=== PATIENT | female | born 1955 | race Caucasian/White ===

== ENCOUNTER 2024-08-09 18:05 | Emergency (ER) | payer OTHER ==
[~2024-08-09] VITALS: Ht 175.3 cm; Wt 86.2 kg
[~2024-08-09 18:05] MED LIST: CEPH500; CIPR500; HYDACE5; HYDR25SUP PR; IBUP800 PO; NAPR220 PO; OXYACE5T PO; RXIBUP800 PO; RXOXYACE PO; TIOT18 INH
[2024-08-09] MEDS ORDERED: Ketorolac Tromethamine 15mg Vial IV ONE (19:25)
[2024-08-09] MEDS ORDERED: Prochlorperazine Edisylate 10 mg Vial IV ONE (19:25)
[2024-08-09] MEDS ORDERED: NS 1,000 ML IV SCH (19:25)
[2024-08-09 19:48] LABS: Influenza B, PCR NEGATIVE (NEGATIVE); Resp Syncytial Virus, PCR NEGATIVE (NEGATIVE); SARS-Cov-2 (COVID-19) PCR, MMC NEGATIVE (NEGATIVE)
[2024-08-09 19:48] LABS: BASOPHILS ABSOLUTE AUTO 0.03 K/mm3 (0.00-0.23); BASOPHILS PERCENT AUTO 0 % (0-2); EOSINOPHILS PERCENT AUTO 0 % (0-6); Hematocrit 41.7 % (33.0-51.0); Hemoglobin 14.1 g/dL (11.5-16.0); IMMATURE GRAN ABSOLUTE AUTO 0.03 K/mm3 (0.00-0.10); IMMATURE GRAN PERCENT AUTO 0 % (0-1); LYMPHOCYTES ABSOLUTE AUTO 0.95 K/mm3 (0.84-5.20); LYMPHOCYTES PERCENT AUTO 12 % (21-46); MONOCYTES ABSOLUTE AUTO 1.03 K/mm3 (0.16-1.47); MONOCYTES PERCENT AUTO 13 % (4-13); Mean Corpuscular HGB 27.9 pg (26.0-34.0); Mean Corpuscular HGB Conc 33.8 g/dL (31.5-36.5); Mean Corpuscular Volume 82 fL (80-100); Mean Platelet Volume 9.3 fL (9.1-12.4); NEUTROPHILS ABSOLUTE AUTO 5.84 K/mm3 (1.96-9.15); NEUTROPHILS PERCENT AUTO 74 % (41-73); Platelet Count 154 K/mm3 (150-400); RDW Coefficient Variation 13.7 % (11.7-14.2); RDW Standard Deviation 40.9 fL (35.1-46.3); Red Blood Cell Count 5.06 M/mm3 (3.80-5.20); White Blood Cell Count 7.88 K/mm3 (4.00-11.30)
[2024-08-09 20:15] LABS: Albumin/Globulin Ratio 0.8 (0.8-1.8); Bilirubin, Total 0.4 mg/dL (0.1-1.0); Bun/Creatinine Ratio 23.5 (12.0-20.0); Calcium, Blood 8.9 mg/dL (8.5-10.1); Creatinine, Blood 0.98 mg/dL (0.40-1.00); Potassium, Blood 3.6 mmol/L (3.5-5.5)
[2024-08-09 20:49] LABS: Influenza A, PCR POSITIVE (NEGATIVE)
[2024-08-09 21:30] VITALS: BP 120/61
[2024-08-09] MEDS ORDERED: Azithromycin 250 MG Tab PO ONE (21:35)
[2024-08-09] MEDS ORDERED: Dexamethasone Sod Phos 10 MG/ML 1ML VIAL IV ONE (21:35)
[2024-08-09] MEDS ORDERED: AZIT250 PO (21:38)
== END 2024-08-09 21:55 | disposition home or self-care (01) ==
LOC: ER 18:05
PROVIDERS: Student in an Organized Health Care Education/Training Program
DX: J10.1 Influenza due to other identified influenza virus with other respiratory manifestations (principal); J44.1 Chronic obstructive pulmonary disease with (acute) exacerbation; F17.200 Nicotine dependence, unspecified, uncomplicated; Z88.0 Allergy status to penicillin
CPT/HCPCS: 0241U; 70450; 71046; 80053; 84484; 85025; 93005; 93010; 96374; 96375; 99285-25; A9270; J0780; J1100; J1885; J7030

== ENCOUNTER 2024-10-24 12:45 | Day surgery (SDC) | payer OTHER ==
[~2024-10-24] VITALS: Ht 165.1 cm; Wt 60.6 kg
[~2024-10-24 12:45] MED LIST changes: +AZIT250 PO; +Atropine Sulfate 0.1 MG/ML 10ML SYR ONE; +Glycopyrrolate 0.2 MG/ML 1MLVIAL ONE; +Lactated Ringer's 1,000 ML IV ONE; +Ondansetron HCl 2 MG / ML 2ML Vial ONE; +ePHEDrine Sulfate 50 MG/ML 1ML Injection ONE
[2024-10-24] MEDS ORDERED: TRELEGY ELLIPT1 EACH (12:52)
[2024-10-24] MEDS ORDERED: FLUTICASONE-SA1 EAC1 (12:53)
[2024-10-24] MEDS ORDERED: ASPI81CH (12:53)
[2024-10-24] MEDS ORDERED: IBUP100S (12:53)
[2024-10-24] MEDS ORDERED: Ventolin5 MG/1 ML (12:53)
[2024-10-24] MEDS ORDERED: NICOTINE LOZENGE2 MG (12:54)
[2024-10-24] MEDS ORDERED: TRAM50 PO (12:54)
[2024-10-24] MEDS ORDERED: OMEP20ER (12:54)
[2024-10-24] MEDS ORDERED: propofoL 50 ML IV ONE (13:30)
[2024-10-24] MEDS ORDERED: Lactated Ringer's 1,000 ML IV ONE (13:30)
[2024-10-24] MEDS ORDERED: Labetalol HCL 5 MG/ML 4ML Injection (Single Dose) ONE (13:47)
[2024-10-24 15:01] VITALS: BP 109/80
== END 2024-10-24 14:34 | disposition home or self-care (01) ==
LOC: ORSCSDS 12:45
PROVIDERS: Internal Medicine Gastroenterology
PROC: 0DB58ZX Excision of Esophagus, Via Natural or Artificial Opening Endoscopic, Diagnostic (ICD-10-PCS; principal; 2024-10-24 14:00)
PROC: 0DB68ZX Excision of Stomach, Via Natural or Artificial Opening Endoscopic, Diagnostic (ICD-10-PCS; principal; 2024-10-24 14:00)
DX: R13.10 Dysphagia, unspecified (principal); K21.9 Gastro-esophageal reflux disease without esophagitis; R19.5 Other fecal abnormalities; K29.70 Gastritis, unspecified, without bleeding; K31.7 Polyp of stomach and duodenum; J44.9 Chronic obstructive pulmonary disease, unspecified; I10 Essential (primary) hypertension; Z99.81 Dependence on supplemental oxygen; R11.10 Vomiting, unspecified; F17.210 Nicotine dependence, cigarettes, uncomplicated; Z79.82 Long term (current) use of aspirin; Z79.899 Other long term (current) drug therapy
CPT/HCPCS: 88305; 88341; 88342; J0461; J2405; J2704; J7120